=== PATIENT | male | born 1955 | race African-American/Black ===

== ENCOUNTER 2017-12-20 08:35 | Emergency (ER) | payer BC, OTHER ==
[~2017-12-20] VITALS: Ht 185.4 cm; Wt 98.0 kg
[2017-12-20] MEDS ORDERED: KETOROLAC 60MG/2ML VIAL IM ONE (09:45)
[2017-12-20] MEDS ORDERED: TETANUS, DIPHTHERIA, PERTUSSIS VAC/PF 0.5ML (>7YR OLD) IM ONE (09:45)
[2017-12-20] MEDS ORDERED: BACITRACIN ZINC OINT UDPKT TOP ONE (12:45)
[2017-12-20] MEDS ORDERED: LIDOCAINE HCL 1%/EPI 1:200,000 30 ML VIAL MC ONE (12:45)
[2017-12-20 14:15] VITALS: BP 155/99
[2017-12-20] MEDS ORDERED: MORPHINE SULFATE 10 MG/ML CPJ IM ONE (14:15)
== END 2017-12-20 14:30 | disposition home or self-care (01) ==
LOC: ER 08:48
DX: S82.431A Displaced oblique fracture of shaft of right fibula, initial encounter for closed fracture (principal); S82.51XA Displaced fracture of medial malleolus of right tibia, initial encounter for closed fracture; S01.112A Laceration without foreign body of left eyelid and periocular area, initial encounter; J45.909 Unspecified asthma, uncomplicated; Y08.89XA Assault by other specified means, initial encounter; Y93.89 Activity, other specified; Y92.89 Other specified places as the place of occurrence of the external cause; Y99.8 Other external cause status
CPT/HCPCS: 12011; 70450; 70486; 73610; 73630; 90471; 90715; 96372; 99284; J1885; J2270; X7700; Z7610